=== PATIENT | female | born 1960 | race African-American/Black ===

== ENCOUNTER 2017-02-14 12:46 | Emergency (ER) | payer MEDICAID ==
[~2017-02-14] VITALS: Ht 165.1 cm; Wt 90.0 kg
[~2017-02-14 12:46] MED LIST: ATOR40TA PO; DYAZ PO; HYDR-3535 PO; METF500 PO; MOME17I; MONT10TA2 PO; OMEP20TA PO; PRIN5TAB PO; SERT-132 PO; TIZA4 PO
[2017-02-14 12:48] VITALS: BP 218/102; PULSE 80; RESP 16; TEMP 98; O2SAT 100
[2017-02-14 12:56] VITALS: BP 149/75; PULSE 69; RESP 16; O2SAT 97
[2017-02-14] MEDS ORDERED: KETOROLAC TROMETHAMINE 60 MG/2 ML (IM) VIAL IM ONE (13:30)
[2017-02-14] MEDS ORDERED: ORPHENADRINE INJ 60 MG/2 ML AMP IM ONE (13:30)
--- NOTE | 2017-02-14 13:35 | PD ---
HPI Chief Complaint: Pain: Acute or Chronic Time Seen by Provider: 13:27 Travel History International Travel<30 days: No Contact w/Intl Traveler<30days: No Traveled to known affect area: No History of Present Illness HPI Patient is a 56-year-old female presenting to the emergency room for evaluation of neck pain. Patient has a chronic history of neck pain, she is currently on disability for this issue. Patient states she had injections performed this morning that did not help her pain and now her pain is worse. She states she told her physician that the pain was worse, she stated she was told that wasn't possible. Patient states the pain is tight and crampy feeling which is what she experiences normally however the intensity has increased. Patient denies a headache, numbness or tingling in her extremities, weakness. She was prescribed Mobic by her doctor this morning, she has not taken this medication. She presented to the emergency room without notifying her physician or on the advice of her physician. PFSH Past Medical History Cancer: No High Cholesterol: Yes Diabetes: Yes (ORAL MEDS) Diminished Hearing: No Glaucoma: No Hepatitis: No Hiatal Hernia: No Hypertension: Yes Musculoskeletal: Yes (chronic neck pain) Reproductive: Yes (FIBROIDS/ENLARGED UTERUS) Thyroid Disease: No ?: Not Menopausal: Yes : 5 Para: 3 Miscarriage: 2 Tubal Ligation: Yes Past Surgical History Abdominal Surgery: Yes (BILE DUCT SURG. CHOLECYSTECTOMY) Cardiac Surgery: No Section: Yes (TIMES 3) Cholecystectomy: Yes Ear Surgery: No Endocrine Surgery: No Eye Surgery: No Genitourinary Surgery: No Gynecologic Surgery: Yes (A FALLOPION TUBE REMOVED. FIBROIDS) Hysterectomy: Yes Oral Surgery: No Pacemaker: No Thoracic Surgery: No Other Surgery: Yes Social History Alcohol Use: No Tobacco Use: No Substance Use: No Allergies-Medications (Allergen,Severity, Reaction): Coded Allergies: Cultivated Oat Pollen (Verified Allergy, Mild, RUNNY NOSE, 12/06/16) Reported Meds & Prescriptions Reported Meds & Active Scripts Active Nasonex (Mometasone Furoate) 50 Mcg/Ac Spr 2 [place] NA DAILY SPRAY IN EACH NOSTRIL Singulair (Montelukast Sodium) 10 Mg Tab 10 Mg PO HS Prinivil (Lisinopril) 5 Mg Tab 5 Mg PO DAILY Dyazide 37.5/25 Mg Cap (Triamterene/Hctz) 1 Cap Cap 1 Cap PO DAILY Atorvastatin 40 mg (Atorvastatin Calcium) 40 Mg Tab 40 Mg PO HS Omeprazole 20 mg (Omeprazole) 20 Mg Tab 20 Mg PO DAILY Reported Zanaflex 4 mg (Tizanidine HCl) 4 Mg Tab 1 Tab PO Q8H Lortab 10 mg/325 mg (Hydrocodone/Acetaminophen 10 mg/325 mg) 1 Tab 1 Tab PO Q6HR PRN Sertraline 50 mg (Sertraline HCl) 50 Mg Tab 1 Tab PO DAILY Glucophage 500 mg (Metformin HCl) 500 Mg Tab 500 Mg PO BIDPC Review of Systems Except as stated in HPI: all other systems reviewed are Neg Musculoskeletal: Positive: Myalgias, Cramping Physical Exam Narrative GENERAL: Well-nourished, well-developed patient. SKIN: Warm and dry. HEAD: Normocephalic. EYES: No scleral icterus. No injection or drainage. NECK: Supple, trachea midline. No JVD or lymphadenopathy. Full range of motion with flexion, extension, and rotation. No spinal tenderness noted. CARDIOVASCULAR: Regular rate and rhythm without murmurs, gallops, or rubs. RESPIRATORY: Breath sounds equal bilaterally. No accessory muscle use. GASTROINTESTINAL: Abdomen soft, non-tender, nondistended. MUSCULOSKELETAL: No cyanosis, or edema. BACK: Nontender without obvious deformity. No CVA tenderness. NEUROLOGICAL: Awake and alert. Cranial nerves II through XII intact. Motor and sensory grossly within normal limits. Five out of 5 muscle strength in all muscle groups. Normal speech. Data Data Last Documented VS Vital Signs Date Time Temp Pulse Resp B/P Pulse Ox O2 Delivery O2 Flow Rate FiO2 02/14/17 12:56 69 16 149/75 97 02/14/17 12:48 98.0 Room Air Orders Ketorolac Inj (Toradol Inj) (02/14/17 13:30) Orphenadrine Inj (Norflex Inj) (02/14/17 13:30) MDM Medical Decision Making Medical Screen Exam Complete: Yes Emergency Medical Condition: Yes Interpretation(s) Vital Signs Date Time Temp Pulse Resp B/P Pulse Ox O2 Delivery O2 Flow Rate FiO2 02/14/17 12:56 69 16 149/75 97 02/14/17 12:48 98.0 80 16 218/102 100 Room Air Differential Diagnosis Strain versus spasm versus discogenic pain versus other Narrative Course Patient is a 56-year-old female presenting to the emergency department for evaluation of neck pain. Patient is neurologically. This is a chronic issue and patient is currently under the care for pain management and she has a primary doctor to follow with. There has been no new injury. Patient was given Toradol and Norflex injections in the emergency department, she was advised to follow-up with her primary doctor or pain management doctor for further evaluation and management. Patient reports improvement in her symptoms after medication administration. She was encouraged to apply warm moist heat to the affected area and continue range of motion exercises. Patient verbalized understanding of instructions. Patient is stable for discharge. Diagnosis Primary Impression: Chronic neck pain Referrals: Pain Management Primary Care Physician Patient Instructions: General Instructions Additional Instructions: Follow-up with your pain management doctor Follow-up with a primary care doctor Return to emergency department for any new or worsening symptoms Continue medications as previously prescribed Continue range of motion exercises, alternate heat and ice to affected area, avoid exacerbating activities Med/Other Pt SpecificInfo: No Change to Meds Disposition: 01 DISCHARGE HOME Condition: Stable Becky De La Rosa Feb 14, 2017 13:35
[2017-02-27] MEDS ORDERED: OMEP20TA PO (14:06)
[2017-03-09] MEDS ORDERED: ATOR40TA16 PO (10:18)
[2017-03-09] MEDS ORDERED: SERT-132 PO (10:18)
[2017-03-09] MEDS ORDERED: MONT10TA2 PO (10:26)
[2017-03-09] MEDS ORDERED: DYAZ37.5 PO (10:26)
[2017-03-09] MEDS ORDERED: PRIN5TAB PO (10:26)
[2017-03-09] MEDS ORDERED: METF500 PO (10:26)
[2017-03-09] MEDS ORDERED: MOME17I EACH NARE (10:26)
[2017-04-11] MEDS ORDERED: LORA-400 PO (13:48)
[2017-04-11] MEDS ORDERED: ALBUAER3 INH (13:50)
[2017-05-08] MEDS ORDERED: FLUT50SP EACH NARE (14:56)
[2017-05-08] MEDS ORDERED: MONT10TA2 PO (14:57)
[2017-05-12] MEDS ORDERED: OMEP40CA2 PO (15:00)
[2017-05-12] MEDS ORDERED: BENZ100 PO (15:03)
== END 2017-02-14 14:27 | disposition home or self-care (01) ==
LOC: NEPB 12:46
DX: M54.2 Cervicalgia (principal); G89.29 Other chronic pain
CPT/HCPCS: 96372; 99282; J1885; J2360

== ENCOUNTER 2017-04-17 18:58 | Emergency (ER) | payer MEDICARE, MEDICAID ==
[~2017-04-17] VITALS: Ht 160 cm; Wt 92.0 kg
[~2017-04-17 18:58] MED LIST changes: +ALBUAER3 INH; -ATOR40TA PO; +ATOR40TA16 PO; -DYAZ PO; +DYAZ37.5 PO; -HYDR-3535 PO; +LORA-400 PO; -MOME17I; -TIZA4 PO
[2017-04-17 19:03] VITALS: BP 180/89; PULSE 100; RESP 16; TEMP 98.5; O2SAT 100
--- NOTE | 2017-04-17 19:50 | PD ---
HPI Chief Complaint: Cold / Flu Symptoms Time Seen by Provider: 19:50 Travel History International Travel<30 days: No Contact w/Intl Traveler<30days: No Traveled to known affect area: No History of Present Illness HPI 56-year-old female presents to the emergency department for evaluation of cough and chest congestion worsening over the last 3 weeks. Patient states she feels as though there is a lot of mucus in her throat. She states at times she coughs to the point of emesis. Denies fever and chills. Denies any chest pain. Patient is not otherwise nauseous or vomiting. She has had no bowel or bladder changes. She has no other symptoms to report. PFSH Past Medical History Cancer: No Cardiovascular Problems: Yes (HTN) High Cholesterol: Yes Diabetes: Yes (BORDERLINE) Patient Takes Glucophage: Yes Diminished Hearing: No Glaucoma: No Hepatitis: No Hiatal Hernia: No Hypertension: Yes Medical other: No Musculoskeletal: Yes (chronic neck pain) Reproductive: Yes (FIBROIDS/ENLARGED UTERUS) Respiratory: Yes Immunizations Current: Yes Thyroid Disease: No Tetanus Vaccination: Unknown Influenza Vaccination: Yes Menopausal: Yes : 5 Para: 3 Miscarriage: 2 Tubal Ligation: Yes Past Surgical History Abdominal Surgery: Yes (BILE DUCT SURG. CHOLECYSTECTOMY) Cardiac Surgery: No Section: Yes (TIMES 3) Cholecystectomy: Yes Ear Surgery: No Endocrine Surgery: No Eye Surgery: No Genitourinary Surgery: No Gynecologic Surgery: Yes (A FALLOPION TUBE REMOVED. FIBROIDS) Hysterectomy: Yes Neurologic Surgery: No Oral Surgery: No Pacemaker: No Thoracic Surgery: No Other Surgery: Yes Social History Alcohol Use: No Tobacco Use: No Substance Use: No Allergies-Medications (Allergen,Severity, Reaction): Coded Allergies: Cultivated Oat Pollen (Verified Allergy, Mild, RUNNY NOSE, 04/17/17) Reported Meds & Prescriptions Reported Meds & Active Scripts Active Tessalon Perles (Benzonatate) 100 Mg Cap 100 Mg PO TID PRN Medrol Dosepak (Methylprednisolone) 4 Mg Dspk 4 Mg PO DIRECTED Per Pharmacist direction Proair Hfa 8.5 GM Inh (Albuterol Sulfate) 90 Mcg/Act Aer 2 Puff INH Q4HR PRN 108 mcg/actuation Prinivil (Lisinopril) 5 Mg Tab 5 Mg PO DAILY Dyazide (Triamterene-Hydrochlorothiazide) 37.5-25 Mg Cap 1 Cap PO DAILY Atorvastatin (Atorvastatin Calcium) 40 Mg Tab 40 Mg PO HS Sertraline (Sertraline HCl) 50 Mg Tab 50 Mg PO DAILY Omeprazole 20 Mg Tab 20 Mg PO DAILY Review of Systems Except as stated in HPI: all other systems reviewed are Neg Physical Exam Narrative GENERAL: Well-nourished, well-developed female patient, in no acute distress SKIN: Focused skin assessment warm/dry. HEAD: Normocephalic. EYES: No scleral icterus. No injection or drainage. ENT: Mucosa pink and moist. No erythema or exudates. No uvular edema. No uvular , palatal, or tonsillar deviation. Airway patent. Nasal turbinates appear normal without nasal blood, purulent drainage or septal hematoma. NECK: Supple, trachea midline. No JVD or lymphadenopathy. CARDIOVASCULAR: Elevated rate and rhythm without murmurs, gallops, or rubs. RESPIRATORY: Breath sounds coarse, diminished equal bilaterally. No accessory muscle use. GASTROINTESTINAL: Abdomen soft, non-tender, nondistended. MUSCULOSKELETAL: No cyanosis, or edema. BACK: Nontender without obvious deformity. No CVA tenderness. Data Data Last Documented VS Vital Signs Date Time Temp Pulse Resp B/P Pulse Ox O2 Delivery O2 Flow Rate FiO2 04/17/17 19:03 98.5 100 16 180/89 100 Room Air Orders Group A Rapid Strep Screen (04/17/17 19:36) Influenzae A/B Antigen (04/17/17 19:36) Chest, Pa & Lat (04/17/17 ) Strep Culture (Group A) (04/17/17 19:40) MDM Medical Decision Making Medical Screen Exam Complete: Yes Emergency Medical Condition: Yes Medical Record Reviewed: Yes Differential Diagnosis Bronchitis versus pneumonia versus influenza Narrative Course 56 year-old female presents to emergency department for evaluation of cough and chest congestion. X-ray imaging shows no acute cardiopulmonary disease. This is likely a bronchitis. Patient will be treated as such. She is encouraged to follow-up with her primary care provider and return immediately with any acute worsening symptoms. Patient agrees with this plan of care. Diagnosis Primary Impression: Bronchitis Referrals: Primary Care Physician Patient Instructions: Acute Bronchitis (ED), General Instructions Additional Instructions: Rest Maintain adequate oral hydration Follow-up with a primary care provider Return immediately with any acute worsening of symptoms Med/Other Pt SpecificInfo: Prescription(s) given Scripts Benzonatate (Tessalon Perles)100 Mg [id number] Mg PO TID PRN (COUGH) #20 CAP Ref 0 Prov:Nerissa Owens 04/17/17 Methylprednisolone Dosepak (Medrol Dosepak)4 Mg Dspk4 Mg PO DIRECTED #1 DSPK Ref 0 Per Pharmacist direction Prov:Nerissa Owens 04/17/17 Albuterol 8.5 GM Inh (Proair Hfa 8.5 GM Inh)90 Mcg/Act Aer2 Puff INH Q4HR PRN ( SHORTNESS OF BREATH) #1 INHALER Ref 0 108 mcg/actuation Prov:Nerissa Owens 04/17/17 Disposition: 01 DISCHARGE HOME Condition: Stable Nerissa Owens April 17, 2017 19:50
--- NOTE | 2017-04-17 20:42 | RADRPT ---
EXAM DATE/TIME: 04/17/2017 19:56 [facility] COMPARISON: No previous studies available for comparison. INDICATIONS : Cough. MEDICAL HISTORY : Hypertension. Asthma. SURGICAL HISTORY : Cholecystectomy. ENCOUNTER: Initial ACUITY: 3 weeks PAIN SCORE: 0/10 LOCATION: Bilateral chest FINDINGS: PA and lateral views of the chest demonstrate the lungs to be symmetrically aerated without evidence of mass, infiltrate or effusion. The cardiomediastinal contours are unremarkable. Osseous structure s are intact. CONCLUSION: No acute disease. Narciso Sheehan MD on April 17, 2017 at 20:40 Board Certified Radiologist. This report was verified electronically.
[2017-04-17] MEDS ORDERED: ALBUAER3 INH (20:50)
[2017-04-17] MEDS ORDERED: BENZ100 PO (20:50)
[2017-04-17] MEDS ORDERED: MEDR4PAK PO (20:50)
[2017-05-08] MEDS ORDERED: FLUT50SP EACH NARE (14:56)
[2017-05-08] MEDS ORDERED: MONT10TA2 PO (14:57)
[2017-05-12] MEDS ORDERED: OMEP40CA2 PO (15:00)
[2017-05-12] MEDS ORDERED: BENZ100 PO (15:03)
== END 2017-04-17 21:00 | disposition home or self-care (01) ==
LOC: NEPK 18:58
DX: J40 Bronchitis, not specified as acute or chronic (principal); I10 Essential (primary) hypertension; R73.03 Prediabetes; E78.00 Pure hypercholesterolemia, unspecified; Z87.39 Personal history of other diseases of the musculoskeletal system and connective tissue; Z86.79 Personal history of other diseases of the circulatory system; Z87.42 Personal history of other diseases of the female genital tract; Z87.09 Personal history of other diseases of the respiratory system
CPT/HCPCS: 71020; 87081; 87804; 87880; 99284

== ENCOUNTER 2018-01-06 10:39 | Emergency (ER) | payer MEDICAID ==
[~2018-01-06] VITALS: Ht 165.1 cm; Wt 95.5 kg
[~2018-01-06 10:39] MED LIST changes: -DYAZ37.5 PO; +FLUT50SP EACH NARE; -LORA-400 PO; +LORA-650 PO; +LOSA25TA PO; -METF500 PO; -OMEP20TA PO; +OMEP20TA93 PO; -PRIN5TAB PO; +TRIA37.53 PO
[2018-01-06 10:43] VITALS: BP 161/74; PULSE 85; RESP 14; TEMP 98.6; O2SAT 95
[2018-01-06] MEDS ORDERED: SODIUM CHLOR 0.9% 1000 ML INJ 1,000 ML IV ONE (11:15)
[2018-01-06] MEDS ORDERED: ONDANSETRON HCL 4 MG/2 ML VIAL IV PUSH ONE (11:15)
[2018-01-06] MEDS ORDERED: ZOFR4TAB3 SL (11:16)
[2018-01-06] MEDS ORDERED: ALBU.5I NEB (11:16)
--- NOTE | 2018-01-06 11:17 | PD ---
HPI Chief Complaint: Cold / Flu Symptoms Time Seen by Provider: 10:54 Travel History International Travel<30 days: No Contact w/Intl Traveler<30days: No Traveled to known affect area: No History of Present Illness HPI 57-year-old female presents emergency department complaining of cough, sore throat, congestion, nausea, body aches for approximately 5 days. States that she has been around her grandchildren who have had viral illnesses. Patient also states she has had a fever of 101 control with Tylenol. Patient states her appetite has been decreased as she has also felt nauseous. Patient initially denied any medical problems but then states she has asthma and hypertension. States that she does not have any more home nebulizer medications but she does have Ventolin as a rescue inhaler. Denies chest pain or significant shortness of breath. Denies back pain. PFSH Past Medical History Cancer: No Cardiovascular Problems: Yes (HTN) High Cholesterol: Yes Diabetes: Yes (BORDERLINE) Patient Takes Glucophage: No Diminished Hearing: No Glaucoma: No Hepatitis: No Hiatal Hernia: No Hypertension: Yes Medical other: No Musculoskeletal: Yes (chronic neck pain) Reproductive: Yes (FIBROIDS/ENLARGED UTERUS) Respiratory: Yes Immunizations Current: Yes Thyroid Disease: No Menopausal: Yes : 5 Para: 3 Miscarriage: 2 Tubal Ligation: Yes Past Surgical History Abdominal Surgery: Yes (BILE DUCT SURG. CHOLECYSTECTOMY) Cardiac Surgery: No Section: Yes (TIMES 3) Cholecystectomy: Yes Ear Surgery: No Endocrine Surgery: No Eye Surgery: No Genitourinary Surgery: No Gynecologic Surgery: Yes (A FALLOPION TUBE REMOVED. FIBROIDS) Hysterectomy: Yes Neurologic Surgery: No Oral Surgery: No Pacemaker: No Thoracic Surgery: No Other Surgery: Yes Social History Alcohol Use: No Tobacco Use: No Substance Use: No Allergies-Medications (Allergen,Severity, Reaction): Coded Allergies: grass pollen (Unverified Allergy, Mild, RUNNY NOSE, 12/04/17) Reported Meds & Prescriptions Reported Meds & Active Scripts Active Albuterol Neb (Albuterol Sulfate) 2.5 Mg/0.5 Ml Neb 2.5 Mg NEB Q6HR NEB PRN Note: The Albuterol Sulfate Inhalation Solution is concentrated and must be diluted. Read complete instructions carefully before using. Zofran Odt (Ondansetron Odt) 4 Mg Tab 4 Mg SL Q8HR PRN 3 Days Sertraline (Sertraline HCl) 50 Mg Tab 50 Mg PO DAILY Atorvastatin (Atorvastatin Calcium) 40 Mg Tab 40 Mg PO HS Singulair (Montelukast Sodium) 10 Mg Tab 10 Mg PO HS Triamterene-Hydrochlorothiazide 37.5-25 Mg Cap 2 Cap PO DAILY Omeprazole 20 Mg Tab 20 Mg PO DAILY Losartan (Losartan Potassium) 25 Mg Tab 25 Mg PO DAILY Allergy Relief (Loratadine) 10 Mg Tab 10 Mg PO DAILY Fluticasone Nasal [place] 50 Mcg/Act Naspr 1 Spr EACH NARE BID 50 mcg/spray Proair Hfa 8.5 GM Inh (Albuterol Sulfate) 90 Mcg/Act Aer 2 Puff INH Q4HR PRN 108 mcg/actuation Review of Systems Except as stated in HPI: all other systems reviewed are Neg Physical Exam Narrative GENERAL: Well-nourished, well-developed patient. SKIN: Focused skin assessment warm/dry. HEAD: Normocephalic. EYES: No scleral icterus. No injection or drainage. NECK: Supple, trachea midline. No JVD. Mild anterior cervical lymphadenopathy CARDIOVASCULAR: Regular rate and rhythm without murmurs, gallops, or rubs. RESPIRATORY: Breath sounds equal bilaterally. No accessory muscle use. No wheezes or rhonchi GASTROINTESTINAL: Abdomen soft, non-tender, nondistended. MUSCULOSKELETAL: No cyanosis, or edema. BACK: Nontender without obvious deformity. No CVA tenderness. Data Data Last Documented VS Vital Signs Date Time Temp Pulse Resp B/P (MAP) Pulse Ox O2 Delivery O2 Flow Rate FiO2 01/06/18 10:43 98.6 85 14 161/74 (103) 95 Orders Orders Sodium Chlor 0.9% 1000 Ml Inj (Ns 1000 M (01/06/18 11:15) Ondansetron Inj (Zofran Inj) (01/06/18 11:15) Albuterol-Ipratropium Neb (Duoneb Neb) (01/06/18 11:15) Ed Discharge Order (01/06/18 12:24) [facility] Medical Decision Making Medical Screen Exam Complete: Yes Emergency Medical Condition: Yes Differential Diagnosis Viral syndrome, influenza, common cold Narrative Course 57-year-old female presents emergency department complaining of cough, sore throat, congestion, nausea, body aches for approximately 5 days. States that she has been around her grandchildren who have had viral illnesses. Patient also states she has had a fever of 101 control with Tylenol. Patient states her appetite has been decreased as she has also felt nauseous. Patient initially denied any medical problems but then states she has asthma and hypertension. States that she does not have any more home nebulizer medications but she does have Ventolin as a rescue inhaler. Denies chest pain or significant shortness of breath. Denies back pain. Vital signs stable. Physical exam findings mild erythema posterior pharynx with lymphadenopathy. During the interview process patient requests a nebulizer treatment as she does not have this medication at home and she says she feels weak. Prior to my assessment, patient was walking around the room without issues normal gait. 1 L normal saline with Zofran administered for her nausea. Duo nebs 2. Patient states she feels much better and will follow with her primary care physician. Patient will be discharged with albuterol. Pt to follow up with her PCP within 2-3 days. Return for worsening or persistent symptoms. Diagnosis Primary Impression: Viral syndrome Referrals: [facility] Primary Care Physician Additional Instructions: Follow-up with her primary care physician this week. Take medications as prescribed. History of adequate fluid intake. Continue Tylenol for ear fever and aches and pains. Scripts Albuterol Neb (Albuterol Neb) 2.5 Mg/0.5 Ml Neb 2.5 MG NEB Q6HR NEB Y for SOB/WHEEZING, #1 BOX Note: The Albuterol Sulfate Inhalation Solution is concentrated and must be diluted. Read complete instructions carefully before using. Prov: Stephanie Rollins 01/06/18 Ondansetron Odt (Zofran Odt) 4 Mg Tab 4 MG SL Q8HR Y for Nausea/Vomiting for 3 Days, #12 TAB 0 Refills Prov: Stephanie Rollins 01/06/18 Disposition: 01 DISCHARGE HOME Condition: Stable Stephanie Rollins Jan 06, 2018 11:17
[2018-01-06] MEDS: RESP: ALBUTEROL 2.5 MG/IPRATROPIUM 0.5 MG NEB (SCH) INH (11:18)
== END 2018-01-06 13:03 | disposition home or self-care (01) ==
LOC: NEPD 10:39
DX: B34.9 Viral infection, unspecified (principal); R50.9 Fever, unspecified; J45.909 Unspecified asthma, uncomplicated; J02.9 Acute pharyngitis, unspecified; R11.0 Nausea; I10 Essential (primary) hypertension
CPT/HCPCS: 94640; 94664; 96374; 99283; J2405; J7030